=== PATIENT | female | born 1990 | race African-American/Black ===

== ENCOUNTER 2018-10-24 19:05 | Inpatient (IN) | payer MEDICAID, OTHER ==
[~2018-10-24] VITALS: Ht 304.8 cm; Wt 49.0 kg
[2018-10-24] MEDS ORDERED: ONDANSETRON HCL 4MG/2ML INJ IV STA (23:30)
[2018-10-24] MEDS ORDERED: MORPHINE SULFATE 4 MG/ML CPJ (NOT FOR IM USE) IV STA (23:30)
[2018-10-24] MEDS ORDERED: SODIUM CHLORIDE 0.9% 1,000 ML IV ONE (23:30)
[2018-10-24] MEDS ORDERED: MAGNESIUM/ALUMINUM HYDROXIDE/SIMETHICONE 30ML UDC PO STA (23:30)
[2018-10-25 00:15] LABS: BASOPHILS % 0.4 % (0.0-2.0); CHLORIDE 101 mEq/L (98-107); EOSINOPHILS % 7.4 % (0.0-5.0); HEMATOCRIT. 35.2 % (36.0-48.0); HEMOGLOBIN. 11.4 g/dL (12.0-16.0); LYMPHOCYTES % 31.9 % (20.0-50.0); MEAN CORPUSCULAR HEMOGLOBIN 27.7 pg (28.0-32.0); MEAN CORPUSCULAR VOLUME 85.3 fL (81.0-99.0); MEAN PLATELET VOLUME 10.4 fl (7.4-10.4); NEUTROPHILS % 55.3 % (40.0-76.0); PLATELET 71 x1000/uL (130-400); RED BLOOD CELL COUNT 4.12 mill/uL (4.2-5.4); RED CELL DISTRIBUTION WIDTH 14.1 % (11.6-14.6)
[2018-10-25 00:17] LABS: INR 1.1; PROTHROMBIN TIME 11.4 sec (9.1-11.1)
[2018-10-25 00:39] LABS: CLARITY URINE CLOUDY (CLEAR); COLOR URINE YELLOW (YELLOW); KETONES URINE 2+ (NEGATIVE); LEUKOCYTE ESTERASE URINE 1+ (NEGATIVE); NITRITE URINE NEGATIVE (NEGATIVE); OCCULT BLOOD URINE NEGATIVE (NEGATIVE); PROTEIN URINE NEGATIVE (NEGATIVE); SPECIFIC GRAVITY URINE 1.025 (1.005-1.030); UROBILINOGEN URINE 0.2 E.U./dL (0.2-1.0)
[2018-10-25] MEDS ORDERED: CEFTRIAXONE 1 G PREMIX 50 ML IV NR (02:45)
[2018-10-25] MEDS ORDERED: HYDROCODONE/ACETAMINOPHEN 5/325MG TABLET PO ONE (04:00)
[2018-10-25] MEDS ORDERED: MORPHINE SULFATE 4 MG/ML CPJ (NOT FOR IM USE) IV STA (04:17)
[2018-10-25] MEDS ORDERED: IOHEXOL-350 100 ML BOTTLE ONE (07:24)
[2018-10-25] MEDS ORDERED: FAMOTIDINE 20MG/2ML VIAL IV ONE (11:15)
[2018-10-25] MEDS ORDERED: OXYCODONE HCL/ACETAMINOPHEN 5/325MG TABLET PO ONE (11:15)
[2018-10-25] MEDS ORDERED: MORPHINE SULFATE 4 MG/ML CPJ (NOT FOR IM USE) IV ONE (12:30)
[2018-10-25] MEDS ORDERED: CEFTRIAXONE 1 G PREMIX 50 ML IV SCH (13:15)
[2018-10-25] MEDS ORDERED: DEXT 5%/0.45% NACL 1000ML 1,000 ML IV ONE (13:15)
[2018-10-25] MEDS: ONDANSETRON HCL 4MG/2ML INJ IV PRN ×2 (13:58→22:41)
[2018-10-25 20:40] VITALS: BP 118/76
[2018-10-25] MEDS: DEXT 5%/0.45% NACL 1000ML 1,000 ML IV SCH ×2 (21:00→22:42)
[2018-10-25] MEDS: PANTOPRAZOLE SODIUM 40 MG/VIAL IV SCH (22:40)
[2018-10-25] MEDS: HYDROMORPHONE HCL/PF 2MG/ML CPJ IV PRN (22:40)
[2018-10-25] MEDS: SUCRALFATE 1 G/10 ML UDC PO SCH (22:41)
[2018-10-26] VITALS (7 sets, daily range): BP systolic 91–118; BP diastolic 51–76
[2018-10-26] MEDS ORDERED: CEFTRIAXONE 1,000 MG in DEXTROSE 5% WATER 50 ML IV NR ×2
[2018-10-26] MEDS: HYDROMORPHONE HCL/PF 2MG/ML CPJ IV PRN ×3 (06:53→20:23)
[2018-10-26] MEDS: ONDANSETRON HCL 4MG/2ML INJ IV PRN ×2 (06:53→20:23)
[2018-10-26] MEDS: SUCRALFATE 1 G/10 ML UDC PO SCH ×4 (06:53→20:22)
[2018-10-26 07:40] LABS: CHLORIDE 105 mEq/L (98-107)
[2018-10-26 07:43] LABS: BASOPHILS % 0.3 % (0.0-2.0); EOSINOPHILS % 9.9 % (0.0-5.0); HEMATOCRIT. 28.8 % (36.0-48.0); HEMOGLOBIN. 9.4 g/dL (12.0-16.0); LYMPHOCYTES % 32.2 % (20.0-50.0); MEAN CORPUSCULAR HEMOGLOBIN 27.5 pg (28.0-32.0); MEAN CORPUSCULAR VOLUME 84.5 fL (81.0-99.0); NEUTROPHILS % 48.6 % (40.0-76.0); RED BLOOD CELL COUNT 3.41 mill/uL (4.2-5.4); RED CELL DISTRIBUTION WIDTH 14.4 % (11.6-14.6)
[2018-10-26 07:46] LABS: TOTAL IRON BINDING CAPACITY 184 ug/dL (250-450)
[2018-10-26 07:50] LABS: FERRITIN 79 ng/mL (10-291)
[2018-10-26] MEDS ORDERED: DOCUSATE SODIUM 100MG CAPSULE PO SCH (09:00)
[2018-10-26] MEDS: PANTOPRAZOLE SODIUM 40 MG/VIAL IV SCH ×2 (09:18→17:00)
[2018-10-26] MEDS: DEXT 5%/0.45% NACL 1000ML 1,000 ML IV SCH ×2 (09:19→20:30)
[2018-10-26 09:38] LABS: FOLIC ACID (FOLATE) SERUM > 20.00 ng/mL (>5.38)
[2018-10-26 09:40] LABS: VITAMIN B12 SERUM >2000 pg/mL pg/mL (211-911)
[2018-10-26 10:18] LABS: PLATELET 55 x1000/uL (130-400)
[2018-10-26] MEDS ORDERED: DOCUSATE SODIUM 250MG CAPSULE PO PRN (13:45)
[2018-10-26] MEDS: FERROUS SULFATE 325MG TABLET PO SCH (16:59)
[2018-10-26] MEDS: METOCLOPRAMIDE HCL 10MG/2ML VIAL IV SCH ×2 (17:00→23:47)
[2018-10-26] MEDS ORDERED: FLUCONAZOLE 150MG TABLET PO NR (20:00)
[2018-10-26 20:16] LABS: CREATINE KINASE 66 IU/L (26-192)
[2018-10-26 20:17] LABS: CREATINE KINASE MB FRACTION < 1.0 ng/mL (0.5-3.6)
[2018-10-26] MEDS: CEFTRIAXONE 1,000 MG in DEXTROSE 5% WATER 50 ML IV SCH (20:22)
[2018-10-26 22:10] LABS: *BENZODIAZEPINES SCREEN URINE NEGATIVE (NEGATIVE); *COCAINE SCREEN URINE NEGATIVE (NEGATIVE)
[2018-10-26 22:11] LABS: *AMPHETAMINES SCREEN URINE NEGATIVE (NEGATIVE); CANNABINOID URINE SCREEN NEGATIVE (NEGATIVE); METHADONE URINE SCREEN NEGATIVE (NEGATIVE); PHENCYCLIDINE URINE SCREEN NEGATIVE (NEGATIVE)
[2018-10-26 22:12] LABS: *BARBITURATES SCREEN URINE NEGATIVE (NEGATIVE)
[2018-10-26 22:15] LABS: OPIATES URINE SCREEN PRESUMTIVE POSITIVE (NEGATIVE)
[2018-10-27] VITALS: BP 102/70
[2018-10-27 04:00] VITALS: BP 106/71
[2018-10-27] MEDS: HYDROMORPHONE HCL/PF 2MG/ML CPJ IV PRN ×3 (04:31→19:01)
[2018-10-27] MEDS: METOCLOPRAMIDE HCL 10MG/2ML VIAL IV SCH ×3 (06:00→18:00)
[2018-10-27] MEDS: FERROUS SULFATE 325MG TABLET PO SCH ×3 (06:16→18:51)
[2018-10-27] MEDS: SUCRALFATE 1 G/10 ML UDC PO SCH ×4 (06:16→21:30)
[2018-10-27 07:33] LABS: BASOPHILS % 0.6 % (0.0-2.0); EOSINOPHILS % 8.8 % (0.0-5.0); HEMATOCRIT. 27.4 % (36.0-48.0); HEMOGLOBIN. 9.2 g/dL (12.0-16.0); LYMPHOCYTES % 27.4 % (20.0-50.0); MEAN CORPUSCULAR VOLUME 83.3 fL (81.0-99.0); NEUTROPHILS % 53.2 % (40.0-76.0); RED BLOOD CELL COUNT 3.29 mill/uL (4.2-5.4); RED CELL DISTRIBUTION WIDTH 14.1 % (11.6-14.6)
[2018-10-27 08:00] VITALS: BP 107/75
[2018-10-27 08:01] LABS: CHLORIDE 106 mEq/L (98-107)
[2018-10-27] MEDS: DEXT 5%/0.45% NACL 1000ML 1,000 ML IV SCH ×2 (08:30→13:05)
[2018-10-27] MEDS: PANTOPRAZOLE SODIUM 40 MG/VIAL IV SCH ×2 (09:00→12:52)
[2018-10-27] MEDS ORDERED: FLUCONAZOLE 150MG TABLET PO ONE (11:00)
[2018-10-27] MEDS: ONDANSETRON HCL 4MG/2ML INJ IV PRN ×2 (12:52→18:51)
[2018-10-27 20:00] VITALS: BP 114/76
[2018-10-27] MEDS: CEFTRIAXONE 1,000 MG in DEXTROSE 5% WATER 50 ML IV SCH (21:30)
[2018-10-28] VITALS: BP 105/66
[2018-10-28] MEDS: ONDANSETRON HCL 4MG/2ML INJ IV PRN ×2 (01:46→09:26)
[2018-10-28] MEDS: HYDROMORPHONE HCL/PF 2MG/ML CPJ IV PRN ×4 (01:46→22:50)
[2018-10-28 04:00] VITALS: BP 105/66
[2018-10-28] MEDS: METOCLOPRAMIDE HCL 10MG/2ML VIAL IV SCH ×2 (06:00)
[2018-10-28] MEDS: SUCRALFATE 1 G/10 ML UDC PO SCH ×4 (06:38→21:26)
[2018-10-28 08:00] VITALS: BP 93/60
[2018-10-28] MEDS: FERROUS SULFATE 325MG TABLET PO SCH ×3 (09:25→16:12)
[2018-10-28] MEDS: DOCUSATE SODIUM 250MG CAPSULE PO SCH (09:26)
[2018-10-28] MEDS: PANTOPRAZOLE SODIUM 40 MG/VIAL IV SCH ×2 (09:26→16:12)
[2018-10-28] MEDS ORDERED: ONDANSETRON HCL 4MG/2ML INJ IV PRN (10:30)
[2018-10-28] MEDS: ONDANSETRON HCL 4MG/2ML INJ IV SCH ×3 (11:00→22:49)
[2018-10-28] MEDS: DEXT 5%/0.45% NACL 1000ML 1,000 ML IV SCH ×2 (11:15→12:46)
[2018-10-28 20:00] VITALS: BP 101/67
[2018-10-28] MEDS: CEFTRIAXONE 1,000 MG in DEXTROSE 5% WATER 50 ML IV SCH (21:28)
[2018-10-29] VITALS: BP 115/72
[2018-10-29 04:00] VITALS: BP 102/65
[2018-10-29] MEDS: DEXT 5%/0.45% NACL 1000ML 1,000 ML IV SCH ×2 (04:28→15:23)
[2018-10-29] MEDS: ONDANSETRON HCL 4MG/2ML INJ IV SCH ×2 (06:06→11:12)
[2018-10-29] MEDS: HYDROMORPHONE HCL/PF 2MG/ML CPJ IV PRN ×3 (07:03→20:27)
[2018-10-29] MEDS: SUCRALFATE 1 G/10 ML UDC PO SCH ×4 (07:03→21:39)
[2018-10-29 08:00] VITALS: BP 116/68
[2018-10-29 08:27] LABS: BASOPHILS % 0.5 % (0.0-2.0); EOSINOPHILS % 14.6 % (0.0-5.0); HEMATOCRIT. 29.8 % (36.0-48.0); HEMOGLOBIN. 9.7 g/dL (12.0-16.0); LYMPHOCYTES % 33.3 % (20.0-50.0); MEAN CORPUSCULAR HEMOGLOBIN 27.6 pg (28.0-32.0); MEAN CORPUSCULAR VOLUME 85.1 fL (81.0-99.0); MONOCYTES % 9.2 % (2.0-8.0); NEUTROPHILS % 42.4 % (40.0-76.0); RED CELL DISTRIBUTION WIDTH 14.9 % (11.6-14.6)
[2018-10-29 09:10] LABS: CHLORIDE 108 mEq/L (98-107)
[2018-10-29] MEDS: DOCUSATE SODIUM 250MG CAPSULE PO SCH (11:08)
[2018-10-29] MEDS: FERROUS SULFATE 325MG TABLET PO SCH ×3 (11:08→18:52)
[2018-10-29] MEDS: PANTOPRAZOLE SODIUM 40 MG/VIAL IV SCH ×2 (11:08→17:20)
[2018-10-29 12:00] VITALS: BP 109/78
[2018-10-29 16:00] VITALS: BP 114/76
[2018-10-29] MEDS: SORBITOL 70% SOLN 30ML PO SCH ×2 (18:54→22:59)
[2018-10-29] MEDS: ONDANSETRON HCL 4MG/2ML INJ IV PRN (19:57)
[2018-10-29 20:00] VITALS: BP 118/74
[2018-10-29] MEDS: CEFTRIAXONE 1,000 MG in DEXTROSE 5% WATER 50 ML IV SCH (21:39)
[2018-10-30] VITALS: BP 113/90
[2018-10-30] MEDS: DEXT 5%/0.45% NACL 1000ML 1,000 ML IV SCH ×2 (00:41→18:30)
[2018-10-30] MEDS: ONDANSETRON HCL 4MG/2ML INJ IV PRN ×3 (02:47→21:08)
[2018-10-30] MEDS: HYDROMORPHONE HCL/PF 2MG/ML CPJ IV PRN ×3 (02:49→21:02)
[2018-10-30 04:00] VITALS: BP 97/49
[2018-10-30] MEDS ORDERED: NA PHOS,M-B/NA PHOS,DI-BA ENEMA 118ML PR NR (06:00)
[2018-10-30] MEDS: FERROUS SULFATE 325MG TABLET PO SCH ×3 (07:15→18:24)
[2018-10-30 07:59] LABS: INR 1.2; PARTIAL THROMBOPLASTIN TIME 47.8 sec (23.4-31.0); PROTHROMBIN TIME 11.9 sec (9.1-11.1)
[2018-10-30 08:00] VITALS: BP 95/64
[2018-10-30 08:03] LABS: BASOPHILS % 0.8 % (0.0-2.0); EOSINOPHILS % 9.1 % (0.0-5.0); HEMATOCRIT. 30.7 % (36.0-48.0); HEMOGLOBIN. 9.9 g/dL (12.0-16.0); LYMPHOCYTES % 24.2 % (20.0-50.0); MEAN CORPUSCULAR HEMOGLOBIN 27.7 pg (28.0-32.0); MEAN CORPUSCULAR VOLUME 85.7 fL (81.0-99.0); MONOCYTES % 7.9 % (2.0-8.0); RED BLOOD CELL COUNT 3.58 mill/uL (4.2-5.4)
[2018-10-30 08:14] LABS: CHLORIDE 110 mEq/L (98-107)
[2018-10-30] MEDS: DOCUSATE SODIUM 250MG CAPSULE PO SCH (09:00)
[2018-10-30] MEDS: PANTOPRAZOLE SODIUM 40 MG/VIAL IV SCH ×2 (09:05→18:24)
[2018-10-30] MEDS: SUCRALFATE 1 G/10 ML UDC PO SCH ×4 (09:17→21:08)
[2018-10-30 12:12] VITALS: BP 106/66
[2018-10-30] MEDS ORDERED: FENTANYL CITRATE/PF 50MCG/ML 2ML VIAL ONE (14:36)
[2018-10-30] MEDS ORDERED: MIDAZOLAM HCL 5 MG/5 ML VIAL ONE (14:36)
[2018-10-30] MEDS ORDERED: MIDAZOLAM HCL 5 MG/5 ML VIAL IV PRN (14:36)
[2018-10-30] MEDS ORDERED: FENTANYL CITRATE/PF 50MCG/ML 2ML VIAL IV PRN (14:42)
[2018-10-30] MEDS ORDERED: SODIUM CHLORIDE 0.9% 10ML VIAL ONE (15:10)
[2018-10-30] MEDS ORDERED: SIMETHICONE 40 MG/0.6 ML 30ML ONE (15:10)
[2018-10-30 20:00] VITALS: BP 99/60
[2018-10-30] MEDS: CEFTRIAXONE 1,000 MG in DEXTROSE 5% WATER 50 ML IV SCH (21:08)
[2018-10-31] VITALS (7 sets, daily range): BP systolic 105–117; BP diastolic 48–77
[2018-10-31] MEDS: DEXT 5%/0.45% NACL 1000ML 1,000 ML IV SCH ×2 (02:19→09:43)
[2018-10-31] MEDS: ONDANSETRON HCL 4MG/2ML INJ IV PRN ×4 (03:25→22:39)
[2018-10-31] MEDS: HYDROMORPHONE HCL/PF 2MG/ML CPJ IV PRN ×4 (03:26→22:39)
[2018-10-31] MEDS: SUCRALFATE 1 G/10 ML UDC PO SCH ×4 (06:21→22:39)
[2018-10-31] MEDS: FERROUS SULFATE 325MG TABLET PO SCH ×4 (07:15→17:15)
[2018-10-31] MEDS: DOCUSATE SODIUM 250MG CAPSULE PO SCH (09:00)
[2018-10-31] MEDS: PANTOPRAZOLE SODIUM 40 MG/VIAL IV SCH ×2 (09:43→16:20)
[2018-10-31] MEDS ORDERED: PROT40 MT ×2 (11:41→11:43)
[2018-10-31] MEDS ORDERED: SUCR1TAB30 MT (11:42)
[2018-10-31] MEDS: CEFTRIAXONE 1,000 MG in DEXTROSE 5% WATER 50 ML IV SCH (21:00)
[2018-11-01] VITALS: BP 114/60
[2018-11-01 04:00] VITALS: BP 105/70
[2018-11-01] MEDS: ONDANSETRON HCL 4MG/2ML INJ IV PRN ×2 (06:05→12:29)
[2018-11-01] MEDS: HYDROMORPHONE HCL/PF 2MG/ML CPJ IV PRN (06:05)
[2018-11-01] MEDS: SUCRALFATE 1 G/10 ML UDC PO SCH ×2 (06:05→11:45)
[2018-11-01] MEDS: DEXT 5%/0.45% NACL 1000ML 1,000 ML IV SCH (06:06)
[2018-11-01] MEDS: FERROUS SULFATE 325MG TABLET PO SCH ×3 (07:15→12:15)
[2018-11-01] MEDS: DOCUSATE SODIUM 250MG CAPSULE PO SCH ×2 (09:00→09:59)
[2018-11-01] MEDS: PANTOPRAZOLE SODIUM 40 MG/VIAL IV SCH (09:59)
[2018-11-01 12:00] VITALS: BP 108/69
== END 2018-11-01 13:30 | disposition home or self-care (01) | DRG 253 ==
LOC: ER 19:05 → EDBEDREQTM 10-25 12:27 → EDBEDREQ 10-25 12:27 → 5WST 10-25 12:27 → ENRESERV 10-25 20:10
PROVIDERS: ADMIT Internal Medicine; ATTEND Internal Medicine
PROC: 0DJD8ZZ Inspection of Lower Intestinal Tract, Via Natural or Artificial Opening Endoscopic (ICD-10-PCS; principal; 2018-10-30)
DX: K92.2 Gastrointestinal hemorrhage, unspecified (principal); D69.6 Thrombocytopenia, unspecified; D68.61 Antiphospholipid syndrome; M32.9 Systemic lupus erythematosus, unspecified; B37.3 Candidiasis of vulva and vagina; K64.8 Other hemorrhoids; N39.0 Urinary tract infection, site not specified; M94.0 Chondrocostal junction syndrome [Tietze]; K64.4 Residual hemorrhoidal skin tags; K92.1 Melena; D64.9 Anemia, unspecified; D25.9 Leiomyoma of uterus, unspecified; K59.00 Constipation, unspecified; F32.9 Major depressive disorder, single episode, unspecified; F99 Mental disorder, not otherwise specified; G40.909 Epilepsy, unspecified, not intractable, without status epilepticus; M06.9 Rheumatoid arthritis, unspecified; M35.00 Sjogren syndrome, unspecified; M79.7 Fibromyalgia; Z76.5 Malingerer [conscious simulation]; Z85.41 Personal history of malignant neoplasm of cervix uteri; Z88.6 Allergy status to analgesic agent
CPT/HCPCS: 36415; 71045; 71275; 74177; 80048; 80305; 81025; 82270; 82550; 82553; 82607; 82728; 82746; 83540; 83550; 83880; 84484; 85651; 86038; 86141; 93005; 96361; 96365; 96366; 96375; 96376; 99284; 99285; C1893; C9113; J0696; J1170; J2250; J2270; J2405; J2765; J3010; J3490; J7030; J7060; Q9967

== ENCOUNTER 2019-06-09 12:30 | Emergency (ER) | payer MEDICAID, OTHER ==
[~2019-06-09] VITALS: Ht 162.6 cm; Wt 60.0 kg
[~2019-06-09 12:30] MED LIST: FAMO-135 PO; FERR-71 PO; FOLI0.4T2 PO; HYDR-4001 PO; KEPP250 PO; MECL12.584 PO; MULT-1146 PO; OXYC-100 PO; PROT40 MT; SUCR1TAB30 MT; VITA1CAP47 PO
[2019-06-09] MEDS ORDERED: SODIUM CHLORIDE 0.9% 1,000 ML IV ONE (19:14)
[2019-06-09] MEDS ORDERED: MORPHINE SULFATE 4 MG/ML CPJ (NOT FOR IM USE) IV STA (19:14)
[2019-06-09] MEDS ORDERED: ONDANSETRON HCL 4MG/2ML INJ IV STA (19:14)
[2019-06-09 19:39] LABS: CHLORIDE 105 mEq/L (98-107)
[2019-06-09 19:40] LABS: PARTIAL THROMBOPLASTIN TIME 25.9 sec (23.4-31.0); PROTHROMBIN TIME 10.8 sec (9.6-11.0)
[2019-06-09 19:42] LABS: BASOPHILS % 0.1 % (0.0-2.0); EOSINOPHILS % 0.8 % (0.0-5.0); HEMATOCRIT. 31.6 % (36.0-48.0); HEMOGLOBIN. 10.2 g/dL (12.0-16.0); LYMPHOCYTES % 34.2 % (20.0-50.0); MEAN CORPUSCULAR HEMOGLOBIN 28.7 pg (28.0-32.0); MEAN CORPUSCULAR VOLUME 88.8 fL (81.0-99.0); MEAN PLATELET VOLUME 9.5 fl (7.4-10.4); NEUTROPHILS % 55.9 % (40.0-76.0); PLATELET 61 x1000/uL (130-400); RED BLOOD CELL COUNT 3.56 mill/uL (4.2-5.4); RED CELL DISTRIBUTION WIDTH 17.1 % (11.6-14.6)
[2019-06-09 19:54] LABS: HCG SCREEN NEGATIVE
[2019-06-09 20:07] LABS: CLARITY URINE CLEAR (CLEAR); COLOR URINE YELLOW (YELLOW); KETONES URINE TRACE (NEGATIVE); LEUKOCYTE ESTERASE URINE NEGATIVE (NEGATIVE); NITRITE URINE NEGATIVE (NEGATIVE); OCCULT BLOOD URINE NEGATIVE (NEGATIVE); PROTEIN URINE TRACE (NEGATIVE); SPECIFIC GRAVITY URINE 1.033 (1.005-1.030)
[2019-06-09] MEDS ORDERED: METRONIDAZOLE 500 MG PREMIX 100 ML IV ONE (22:45)
[2019-06-09] MEDS ORDERED: DIPHENHYDRAMINE 50MG/ML VIAL IV ONE (22:45)
[2019-06-09] MEDS ORDERED: ACETAMINOPHEN 325MG TABLET PO PRN (23:15)
[2019-06-09] MEDS ORDERED: ENOXAPARIN 40MG/0.4ML SYR SUBCUT SCH (23:15)
[2019-06-09] MEDS ORDERED: SODIUM CHLORIDE 0.9% 1,000 ML IV SCH (23:15)
[2019-06-09] MEDS ORDERED: CLONIDINE 0.1MG TABLET PO PRN (23:15)
[2019-06-09] MEDS ORDERED: MAGNESIUM/ALUMINUM HYDROXIDE/SIMETHICONE 30ML UDC PO PRN (23:15)
[2019-06-09] MEDS ORDERED: ONDANSETRON HCL 4MG/2ML INJ IV PRN (23:15)
[2019-06-09] MEDS ORDERED: IPRATROPIUM/ALBUTEROL 0.5-3(2.5)MG/3ML NEB NEB PRN (23:15)
[2019-06-09] MEDS ORDERED: DOCUSATE SODIUM 100MG CAPSULE PO PRN (23:15)
[2019-06-09] MEDS ORDERED: HYDROCODONE/ACETAMINOPHEN 5/325MG TABLET PO PRN (23:15)
[2019-06-10 00:35] LABS: CHLORIDE 109 mEq/L (98-107)
[2019-06-10 01:23] VITALS: BP 121/81
[2019-06-10] MEDS ORDERED: HYDROCODONE/ACETAMINOPHEN 5/325MG TABLET PO NR (02:00)
[2019-06-10] MEDS ORDERED: ONDANSETRON HCL 4MG/2ML INJ IV NR (02:00)
== END 2019-06-10 03:08 | disposition short-term general hospital (02) ==
LOC: ER 13:06 → CANRESERV 23:10 → ENRESERV 23:10 → CANBEDREQ 23:57 → ER 06-10 03:08
DX: E16.2 Hypoglycemia, unspecified (principal); E86.0 Dehydration; R10.9 Unspecified abdominal pain; R55 Syncope and collapse; M32.9 Systemic lupus erythematosus, unspecified; R19.7 Diarrhea, unspecified; Z90.49 Acquired absence of other specified parts of digestive tract; Z88.6 Allergy status to analgesic agent; Z91.018 Allergy to other foods; Z88.8 Allergy status to other drugs, medicaments and biological substances; Z79.899 Other long term (current) drug therapy
CPT/HCPCS: 36415; 71045; 74176; 80048; 80053; 81003; 81025; 82962; 83690; 83735; 84484; 84703; 85025; 85610; 85730; 87040; 87077; 87086; 93005; 93970; 96361; 96365; 96366; 96375; 96376; 99284; J1200; J2270; J2405; J3490; J7030

== ENCOUNTER 2019-07-20 13:01 | Emergency (ER) | payer OTHER ==
[~2019-07-20] VITALS: Ht 157.5 cm; Wt 55.0 kg
[2019-07-20] MEDS ORDERED: HYDROCODONE/ACETAMINOPHEN 5/325MG TABLET PO ONE (16:30)
[2019-07-20 17:08] VITALS: BP 122/75
== END 2019-07-20 17:27 | disposition home or self-care (01) ==
LOC: ER 13:40
DX: R05 Cough (principal); R21 Rash and other nonspecific skin eruption; Z90.49 Acquired absence of other specified parts of digestive tract; M79.7 Fibromyalgia; Z79.899 Other long term (current) drug therapy; Z88.6 Allergy status to analgesic agent; Z88.8 Allergy status to other drugs, medicaments and biological substances; Z91.018 Allergy to other foods
CPT/HCPCS: 71045; 99283

== ENCOUNTER 2019-07-26 18:08 | Emergency (ER) | payer OTHER ==
[~2019-07-26] VITALS: Ht 162.6 cm; Wt 45.0 kg
[2019-07-26] MEDS ORDERED: ONDANSETRON HCL 4MG/2ML INJ IV ONE (20:00)
[2019-07-26] MEDS ORDERED: MORPHINE SULFATE 4 MG/ML CPJ (NOT FOR IM USE) IV ONE ×2 (20:00→21:45)
[2019-07-26 20:37] LABS: EOSINOPHILS % 2.8 % (0.0-5.0); HEMATOCRIT. 36.4 % (36.0-48.0); HEMOGLOBIN. 11.7 g/dL (12.0-16.0); LYMPHOCYTES % 39.8 % (20.0-50.0); MEAN CORPUSCULAR HEMOGLOBIN 27.2 pg (28.0-32.0); MEAN CORPUSCULAR VOLUME 84.9 fL (81.0-99.0); MEAN PLATELET VOLUME 8.2 fl (7.4-10.4); MONOCYTES % 9.2 % (2.0-8.0); NEUTROPHILS % 47.2 % (40.0-76.0); PLATELET 103 x1000/uL (130-400); RED BLOOD CELL COUNT 4.29 mill/uL (4.2-5.4); RED CELL DISTRIBUTION WIDTH 15.8 % (11.6-14.6)
[2019-07-26] MEDS: FENTANYL CITRATE/PF 50MCG/ML 2ML VIAL IM ONE (21:48)
[2019-07-27 00:03] VITALS: BP 121/76
== END 2019-07-27 00:03 | disposition home or self-care (01) ==
LOC: ER 18:08
DX: G43.909 Migraine, unspecified, not intractable, without status migrainosus (principal); G89.29 Other chronic pain; D64.9 Anemia, unspecified; Z90.49 Acquired absence of other specified parts of digestive tract; M79.7 Fibromyalgia; Z79.899 Other long term (current) drug therapy; Z88.6 Allergy status to analgesic agent; Z88.8 Allergy status to other drugs, medicaments and biological substances; Z91.018 Allergy to other foods
CPT/HCPCS: 36415; 70450; 73560; 85025; 96372; 99284; J2405; J3010; J2270